=== PATIENT | male | born 1950 | race Caucasian/White ===

== ENCOUNTER 2024-05-16 06:12 | Day surgery (SDC) | payer MEDICARE, SELFPAY ==
[2024-05-16] VITALS (9 sets, daily range): BP systolic 105–122; BP diastolic 56–68; BMI 33.7
[2024-05-16] MEDS: CELEBREX 200 MG PO (06:42)
[2024-05-16] MEDS: TYLENOL 1000 MG PO (06:42)
[2024-05-16] MEDS: NORMOSOL-R/PLASMALYTE-A 1000 IV (06:43)
--- NOTE | 2024-05-16 08:25 | W.IMMPOSTOP ---
Addendum entered and electronically signed by Giancarlo Luu MD 05/16/24 08:47:
Updated daughter
Original Note:
Surgical Immed Post Op Note
-
Primary Surgeon: Giancarlo Luu MD
Assisting Surgeon: None
Pre-op Diagnosis: Recurrent atypical fissure
Post-op Diagnosis: Recurrent atypical fissure
Procedure Performed: Exam under anesthesia, biopsies of fissure, bilateral pudendal nerve block
Anesthesia Type: General With local
Specimen / Cultures: Fissure base, fissure margins
Estimated Blood Loss: 3 mL
Complications: None
Operative Findings: Per op note
--- NOTE | 2024-05-16 08:26 | OR.RPT ---
Operative Report
Operative Report
DATE OF OPERATION: 05/16/2024
SURGEON: Giancarlo Luu MD
PREOPERATIVE DIAGNOSIS: Recurrent atypical anal fissure
POSTOPERATIVE DIAGNOSIS: Recurrent atypical anal fissure
OPERATION: Exam under anesthesia, biopsies of anal fissure, bilateral pudendal nerve block
ASSISTANTS:
1. None
ANESTHESIA: General With local
ESTIMATED BLOOD LOSS: 3 mL
FINDINGS:
1. Right anterior anal fissure extending from the anal verge to the dentate line; evidence of healing with layer of epithelialization; internal sphincter muscle noted to the somewhat hypertonic
2. Biopsied base of fissure and margins of fissure
3. Incidental findings: Small mixed hemorrhoid in left lateral position associated with internal anal papilla; anal papilla noted in the posterior quadrant associated with small internal hemorrhoid; small internal hemorrhoid in the right posterior
position; small skin tag in the left lateral perianal skin
SPECIMENS:
1. Fissure base
2. Fissure margin
DRAINS: None
COMPLICATIONS: None
INDICATIONS: The patient is a 74-year-old male who initially presented with atypical anal fissure and underwent sphincterotomy. He had prolonged healing requiring treatments with silver nitrate but eventually completely healed and did well. He
presented once again with recurrent anal bleeding and was found to have a recurrent atypical anal fissure. Therefore, the patient was recommended to have surgery to obtain biopsies to rule out malignancy or other pathology. The operation was
discussed with the patient in detail, including the risks, benefits and alternatives. Risks described included, but not limited to bleeding, infection, urinary retention, damage to nearby structures such as the anal sphincter, fecal incontinence,
recurrence, inadequate biopsies and anesthetic risks. The patient understood and agreed to proceed. The consent was signed and placed in the chart.
PROCEDURE IN DETAIL: The patient was taken to the operating room. Sequential compression devices were placed bilaterally. Per anesthesia, the decision was made to intubate the patient for this surgery. On the stretcher, general anesthesia was
induced and the patient was intubated without complication. The patient was placed on the operating table in prone position. One seatbelt was secured around the upper back. The buttocks were taped apart. The perineum was shaved, prepped and
draped in the usual fashion. A time-out was performed verifying the correct patient, procedure, operative site, positioning, and special equipment.
Local anesthesia used was a mixture of 60 mL of 0.25% Marcaine and 0.6 mg of dexamethasone. 40 mL was injected perianally at the beginning of the case. The anorectal exam was performed assessing all four quadrants of the anal canal using
Hill-Mike retractors in progressively increasing size. The fissure that was previously noted was seen in the right anterior position extending from the anal verge to the dentate line. However, the fissure has started to heal and has a layer of
epithelialization over the wound bed. There were no obvious masses or ulcers seen associated with the fissure. The edges were mildly raised, but soft. The internal sphincter muscle was noted to be somewhat hypertonic, but did accommodate the medium
Hill-Mike without significant stretch. He also had small internal hemorrhoids in the right posterior and posterior positions associated with small anal papilla in the posterior quadrant. In the left lateral quadrant there was noted to be a
small mixed internal/external hemorrhoid. None of the hemorrhoids were irritated or bleeding and were therefore left alone. There was a small external skin tag in the left lateral perianal skin. On digital rectal exam, there were no masses. No
other concerning pathology within the anal canal. There was no proctitis.
The anal fissure was biopsied using DeBakey's and Metzenbaum scissors. The first biopsy was taken from the base of the fissure and the second biopsy was taken from each margin of the fissure. Hemostasis was controlled with electrocautery.
The remaining 20 mL of local were injected. 5 mL was injected bilaterally for a pudendal nerve block. 10 mL was injected around the surgical site and perianally. Hemostasis was reassessed once more using the small Hill-Mike and was confirmed.
Surgicel was placed in the operative site prophylactically.
At this point, the procedure was complete. All needle, sponge and instrument counts were correct. The patient tolerated the procedure well and was transferred to the recovery room in stable condition with gauze dressing in place secured with silk
tape.
DICTATED BY: Giancarlo Luu MD
== END 2024-05-16 10:40 | disposition home or self-care (01) ==
LOC: SDS 06:12
PROVIDERS: ATTENDING PHYSICIAN Surgery
DX: K60.2 Anal fissure, unspecified (principal); K64.8 Other hemorrhoids; K64.4 Residual hemorrhoidal skin tags; K62.89 Other specified diseases of anus and rectum
CPT/HCPCS: 46606; 88304

== ENCOUNTER → 2024-05-29 11:59 | Outpatient (REF) | payer MEDICARE, SELFPAY ==
[2024-05-29 16:53] LABS: HIV Combo Negative (Negative)
[2024-05-30 12:21] LABS: Syphilis/T. pallidum Ab Reflex Negative (Negative)
[2024-05-31 15:56] LABS: HSV 1 Subtype by PCR Not Detected; HSV 2 Subtype by PCR Not Detected; Herpes Simplex Source Plasma
== END ==
LOC: REG 11:59
PROVIDERS: ATTENDING PHYSICIAN Surgery
DX: K60.2 Anal fissure, unspecified (principal)
CPT/HCPCS: 36415; 86780; 87389; 87529

== ENCOUNTER 2024-06-06 14:03 | Day surgery (SDC) | payer MEDICARE, SELFPAY ==
[2024-06-06] VITALS (11 sets, daily range): BP systolic 105–124; BP diastolic 55–63
[2024-06-06 09:56] LABS: % Basophils 0.5 % (0-2); % Eosinophils 2.2 % (0-6); % Immature Granulocytes 0.4 % (0-0.5); % Lymphocytes 14.6 % (20.5-51.1); % Monocytes 9.3 % (1.7-9.3); Absolute Eosinophils 0.2 10^3/uL (0-0.7); Absolute Lymphocytes 1.1 10^3/uL (1.2-3.4); Absolute Monocytes 0.7 10^3/uL (0.1-0.6); Absolute Neutrophils 5.3 10^3/uL (1.4-6.5); Hematocrit 32.3 % (39.0-52.0); Hemoglobin 10.5 g/dL (13.0-18.0); Mean Corp Hgb Conc. 32.5 g/dL (33.0-37.0); Mean Corpuscular Hgb 30.4 pg (27.0-31.0); Mean Corpuscular Volume 93.6 fL (80.0-94.0); Nucleated Red Blood Cells % 0 % (-); Platelet Count 191 10^3/uL (130-400); Red Blood Cell Count 3.45 10^6/uL (4.70-6.10); Red Cell Dist. Width 13.7 % (11.5-14.5); White Blood Cell Count 7.3 10^3/uL (4.8-10.8)
[2024-06-06 10:11] LABS: ALT (SGPT) 16 U/L (0-50); AST (SGOT) 20 U/L (17-59); Albumin 3.6 g/dl (3.5-5.0); Alkaline Phosphatase 81 U/L (38-126); Blood Urea Nitrogen 18 mg/dl (9-20); Calcium 9.4 mg/dl (8.4-10.2); Carbon Dioxide 26 mmol/L (22-30); Chloride 108 mmol/L (98-107); Glucose 99 mg/dl (70-99); Potassium 4.7 mmol/L (3.5-5.1); Sodium 140 mmol/L (135-145); Total Bilirubin 0.4 mg/dl (0.2-1.3); eGFR 56.93
--- NOTE | 2024-06-06 10:34 | ED.GENMED ---
History of Present Illness
General
Chief Complaint: Rectal Bleeding
Source: patient
Exam Limitations: none
Time Seen by Provider: 06/06/24 10:33
Nursing documentation reviewed up to this point in time: agreed with
History of Present Illness
History of Present Illness:
74-year-old male with history of sleep apnea/CPAP, TAVR 2022, A-fib on Eliquis, HTN, HLD, anxiety/depression, daughter at bedside states 'Dr. Luu sent us in for a procedure.' Pt states he's had rectal bleeding since 05/16 when he had a biopsy.
He has held his Eliquis per Dr. Luu
Past History
Past History
ED Past Medical History: Arrthythmia (A-fib on Eliquis), HTN, Hypercholesterolemia and Psychiatric (Anxiety/depression, PTSD)
ED Past Surgical History: Cardiac (TAVR 01/2023), Orthopedic and Other (Fissurectomy with Botox 2020)
Social History
Tobacco: Non-smoker
Alcohol: None
Personal: Single
Living: alone
Employment: Retired
Review of Systems
Review of Systems
Allergies reviewed?: Yes
All Other Systems: ROS reviewed and negative except as documented in HPI and ROS
Constitutional: Denies fever or fatigue
Respiratory: Denies trouble breathing
Cardiac: Denies chest pain
ABD/GI: Reports other (bleeding rectal fissure); Denies abdominal pain
Musculoskeletal: Reports no symptoms
Skin: Reports no symptoms
Neurological: Reports no symptoms
Phy Exam
Physical Exam
Physical Exam:
GENERAL: No acute distress. A&Ox3.
CONSTITUTIONAL: Afebrile.
EYES: clear, conjunctivae normal
ENMT: moist mucus membranes
RESPIRATORY: Regular respirations, nonlabored, lungs clear.
CARDIOVASCULAR: Regular rate and rhythm, no murmurs, no rubs.
GI: Soft, nontender, normal BS
MUSCULOSKELETAL: Moves with ease. Well perfused.
SKIN: Warm, dry, pink
PSYCH: Normal mood and affect. Well kept, interactive and appropriate
NEUROLOGIC: Awake, alert and oriented. No focal neurological deficits
Course
Orders/Labs/Results
Orders:
Orders
06/06/24 09:37
CMP [Comprehensive Metabolic Panel] Urgent
Complete Blood Count/With Diff Urgent
06/06/24 11:31
Botulinum Toxin Type A [Botox] 100 units INJ OR ONE
06/06/24 11:42
Type+Screen Urgent
Protime/PTT Urgent
06/06/24 12:07
Triamcinolone Acetonide [Kenalog-10] 50 mg INTRALES NOW STA
06/06/24 12:34
Morphine Sulfate 4 mg IV NOW STA
06/06/24 12:49
Fentanyl Citrate/Pf [Sublimaze] 100 mcg .ROUTE .STK-MED ONE
Lidocaine HCl/Pf [Xylocaine-Mpf 1% Vial] 50 mg .ROUTE .STK-MED ONE
Propofol [Diprivan] 20 ml .ROUTE .STK-MED
06/06/24 12:51
Ondansetron Injectable [Zofran] 4 mg .ROUTE .STK-MED ONE
06/06/24 13:04
ABO2 Urgent
BBK Wristband Number:
Associate notified that ABO2 has been ordered: [id number]
Date: 06/06/24
Time: 12:04
Teacher Assistant ID: [id number]
06/06/24 13:17
Bupivacaine Mpf 0.25% [Sensorcaine-Mpf 0.25% Vial] 60 ml .ROUTE .STK-MED ONE
Dexamethasone Pf [Decadron] 10 mg .ROUTE .STK-MED ONE
06/06/24 13:23
Ketamine 5 ml .ROUTE .STK-MED
Midazolam HCl [Versed] 2 mg .ROUTE .STK-MED ONE
06/06/24 14:31
Dexamethasone Sod Phosphate [Decadron] 20 mg .ROUTE .STK-MED ONE
Famotidine [Pepcid] 20 mg .ROUTE .STK-MED ONE
Ondansetron Injectable [Zofran] 4 mg .ROUTE .STK-MED ONE
Sugammadex Sodium [Bridion] 200 mg .ROUTE .STK-MED ONE
06/06/24 14:34
Phenylephrine HCl/0.9% NaCl [Royal-Synephrine] 1,000 mcg .ROUTE .STK-MED ONE
ePHEDrine SULFATE [Emerphed] 50 mg .ROUTE .STK-MED ONE
06/06/24 14:42
HYDROmorphone [Dilaudid] 0.25 mg IV PACU-Q5MPRN PRN
Meperidine [Demerol] 12.5 mg IV PACU-Q5MPRN PRN
Morphine Sulfate 1 mg IV PACU-Q5MPRN PRN
Ondansetron Injectable [Zofran] 4 mg IV PACU-ONCEPRN PRN
Prochlorperazine [Compazine] 5 mg IV PACU-ONCEPRN PRN
Notify MD As Directed
Notify physician if: for SDS patients with known or suspected sleep obstructive sleep apnea, monitor in the
PACU.
Notify MD for any apneic/desaturation episodes
O2 Therapy [RESP] Urgent
Titrate/Wean O2 to maintain O2 sat greater than (%): 92
Special Instructions: -Provide supplemental oxygen to achieve O2 sat of 92% or greater.
-After 15 min, may wean O2 and discontinue if patient is able to maintain O2 sat of 92%
or greater during recovery period.
If patient is a discharge home, without oxygen therapy, notify anestheiologist if
unable to maintain O2 SAT of 92% or greater on room air for MD clearance.
06/06/24 14:45
Acetaminophen 1000MG/100Ml [Ofirmev] 1,000 mg in 100 ml .ROUTE .STK-MED
Normosol (Mult Electrolytes) [Normosol-R/Plasmalyte-A] 1,000 ml IV PER PROTOCOL
06/06/24 16:00
Acetaminophen [Tylenol] 650 mg PO SDS-Q4HPRN PRN
Ibuprofen [Motrin] 600 mg PO SDS-Q6HPRN PRN
Ondansetron Injectable [Zofran] 4 mg IV SDS-ONCEPRN PRN
Oxycodone [Roxicodone] 5 mg PO SDS-Q4HPRN PRN
Abnormal Lab Results
06/06/24
09:37
RBC 3.45 L 10^6/uL
(4.70-6.10)
Hgb 10.5 L g/dL
(13.0-18.0)
Hct 32.3 L %
(39.0-52.0)
MCHC 32.5 L g/dL
(33.0-37.0)
Absolute Lymphs (auto) 1.1 L 10^3/uL
(1.2-3.4)
Absolute Monos (auto) 0.7 H 10^3/uL
(0.1-0.6)
Lymphocytes % 14.6 L %
(20.5-51.1)
Chloride 108 H mmol/L
(98-107)
Total Protein 6.0 L g/dl
(6.3-8.2)
06/06/24 09:37
06/06/24 09:37
Vital Signs
Initial and Last Documented VS:
Initial Vital Signs
Pulse Resp BP Pulse Ox
54 18 112/63 99
06/06/24 11:01 06/06/24 11:01 06/06/24 11:01 06/06/24 11:01
Last Documented Vital Signs
Temp Pulse Resp BP Pulse Ox
97 F 69 20 122/59 96
06/06/24 15:47 06/06/24 16:05 06/06/24 16:05 06/06/24 16:05 06/06/24 16:05
MDM/Problems Addressed
MDM/Problems Addressed:
74-year-old male with history of sleep apnea/CPAP, TAVR 2022, A-fib on Eliquis, HTN, HLD, anxiety/depression, daughter at bedside states 'Dr. Luu sent us in for a procedure.' Pt states he's had rectal bleeding since 05/16 when he had a biopsy.
Afebrile, NAD
CBC: Hemoglobin 10.5
11:00 AM:
Dr. Luu notified patient is here, he states
12:30 PM: Patient is awaiting for O.R. Requesting pain medication for his chronic back pain and more recent rectal pain
*Critical Care Note
Total Time (30-74mins, 75-104mins- exclusive of procedures): Not Applicable
ED Attending Note
-
Portions of this chart may have been created with voice recognition software.� Occasional wrong word or��sound alike� substitutions may have occurred due to the inherent limitations of voice recognition software.
Discharge Plan
Departure
Patient Disposition: OR
Date of Disposition: 06/06/24
Time of Disposition: 13:04
Presentation/result/management discussed w/ accepting /: Jus
Condition: Fair
Discharge Problem:
Chronic rectal fissure, Bleeding per rectum
Interventions
Interventions:
*Risk Screen - Suicide Last Done: 06/06/24 09:01
*General Assessment Last Done: 06/06/24 09:01
*ED COVID-19 Vaccine History Last Done: 06/06/24 09:01
*Nursing Disposition Last Done: 06/06/24 13:37
ZG-Abciyt-Zkmnxlbiin Assessment Last Done: 06/06/24 11:00
ED- Cardiac Assessment Last Done: 06/06/24 11:00
ED- Pulmonary Assessment Last Done: 06/06/24 11:00
Discharge Date and Time
Discharge Date/Time: 06/06/24 13:38
--- NOTE | 2024-06-06 11:29 | CON.CRS ---
Consultation
-
Reason for Consultation: rectal bleeding
Medical History
-
History of Present Illness:
74-year-old male with PMH of HTN, HLD, anxiety/depression, CARLOS, A-fib (on Eliquis, last dose yesterday morning), who presents for anal bleeding since EUA with biopsies on 05/16. He has a history of recurrent anal fissure initially underwent Botox
injection in 2020, underwent right lateral internal sphincterotomy with his excision of anal papilla in 02/2023, he was seen by myself in 03/2024 for recurrent onset of spotting of blood, found to have a right anterior anal fissure. Due to the
atypical nature, he underwent EUA with biopsies on 05/16, that came back negative for malignancy. STI workup was also negative. Since the EUA with biopsies, he has had daily spotting of blood with BMs. He was managed as an outpatient for the last 2
weeks with holding his Eliquis for periods of time and adjusting his topical cream. However, despite these measures, he is continue to have daily spotting of blood. He does have discomfort with BMs, but the pain is not as bad as before. He denies
any chest pain, SOB, lightheadedness or dizziness.
Past Medical History
Past Medical History: Other (As above)
Past Surgical History: Other (Botox injection 2020, sphincterotomy 02/2023, anal biopsies 05/16/2024, open heart surgery 01/2023, back surgery, right TKR)
Social History
Tobacco: Non-Smoker
Alcohol: None
Drug: None
Employment: Retired
Family History
Family History: Other (Denies CRC)
Allergies / Home Medications
Allergy/AdvReac Type Severity Reaction Status Date / Time
diltiazem Allergy Unknown Verified 06/06/24 09:03
lisinopril Allergy cough Verified 06/06/24 09:03
�Medication �Instructions �Recorded �Confirmed �Type
amlodipine 5 mg tablet 5 mg PO BID 11/26/20 05/16/24 History
apixaban 5 mg tablet (Eliquis) 5 mg PO BID 11/26/20 05/16/24 History
clonazepam 0.5 mg tablet 0.5 mg PO PRN PRN anxiety 11/26/20 05/16/24 History
dronedarone 400 mg tablet (Multaq) 400 mg PO BID 11/26/20 05/16/24 History
fluoxetine 20 mg capsule 40 mg PO DAILY 11/26/20 05/16/24 History
hydroxyzine HCl 25 mg tablet 25 mg PO PRN PRN anxiety 11/26/20 05/16/24 History
metoprolol tartrate 50 mg tablet 50 mg PO QPM 11/26/20 05/16/24 History
mirtazapine 30 mg tablet 15 mg PO HS 11/26/20 05/16/24 History
risperidone 1 mg tablet (Risperdal) 2 mg PO HS 11/26/20 05/16/24 History
tamsulosin 0.4 mg capsule 0.4 mg PO HS 11/26/20 05/16/24 History
valsartan 160 mg tablet (Diovan) 160 mg PO BID 11/26/20 05/16/24 History
acetaminophen 325 mg tablet 650 mg PO Q4H PRN pain 02/24/23 05/16/24 History
(Tylenol)
docusate sodium 100 mg capsule 200 mg PO BID 02/24/23 05/16/24 History
(Stool Softener)
metoprolol tartrate 100 mg tablet 100 mg PO DAILY 02/24/23 05/16/24 History
oxycodone 5 mg capsule 5 mg PO Q4H PRN pain 02/24/23 05/16/24 History
atorvastatin 40 mg tablet 40 mg PO HS 05/15/24 05/16/24 History
cholecalciferol (vitamin D3) 25 25 mcg PO DAILY 05/15/24 05/16/24 History
mcg (1,000 unit) tablet (Vitamin
D3)
hydrochlorothiazide 25 mg tablet 25 mg PO Q48H 05/15/24 05/16/24 History
mecobalamin (vitamin B12) 1,000 1,000 mcg PO DAILY 05/15/24 05/16/24 History
mcg chewable tablet
multivitamin 1 tab PO DAILY 05/15/24 05/16/24 History
polyethylene glycol 3350 17 gram 17 g PO DAILY 05/15/24 05/16/24 History
oral powder packet (Miralax)
psyllium 2 tbsp PO DAILY 05/15/24 05/16/24 History
naproxen 500 mg tablet (Naprosyn) 500 mg PO BID #14 tabs 05/16/24 Rx
Review of Systems
-
A 10 point review of systems was completed, and was negative except as per HPI.
Physical Exam
Vital Signs
Pulse 54 06/06/24 11:01
Resp Rate 18 06/06/24 11:01
Blood pressure 112/63 06/06/24 11:01
SaO2 99 06/06/24 11:01
06/05/24 06/06/24 06/07/24
06:59 06:59 06:59
Actual Weight 95.7 kg
Lab Results / Allergies
06/06/24 09:37
06/06/24 09:37
WBC 7.3 10^3/uL (4.8-10.8) 06/06/24 09:37
Hgb 10.5 g/dL (13.0-18.0) L 06/06/24 09:37
Hct 32.3 % (39.0-52.0) L 06/06/24 09:37
Plt Count 191 10^3/uL (130-400) 06/06/24 09:37
Abs Immat Gran (auto) 0.0 10^3/uL (0-0.05) 06/06/24 09:37
Neutrophils % 73.0 % (42.2-75.2) 06/06/24 09:37
Allergy/AdvReac Type Severity Reaction Status Date / Time
diltiazem Allergy Unknown Verified 06/06/24 09:03
lisinopril Allergy cough Verified 06/06/24 09:03
Physical Exam
General: Well Developed, Well Nourished and No Apparent Distress
HEENT: Normocephalic and Atraumatic
Respiratory: Non Labored Respirations
GI: Soft, Non Tender and Non Distended
Rectal: Other (Deferred due to EUA today)
Skin: Warm and Dry
Neuro: AO x 3
Data Reviewed
-
Labs: Labs Reviewed by me, Discussed with Patient and Discussed with Family
Assessment / Plan
-
74-year-old male with PMH of HTN, HLD, anxiety/depression, CARLOS, A-fib (on Eliquis, last dose yesterday morning), who presents for anal bleeding since EUA with biopsies on 05/16. He has a history of recurrent anal fissure initially underwent Botox
injection in 2020, underwent right lateral internal sphincterotomy with his excision of anal papilla in 02/2023, he was seen by myself in 03/2024 for recurrent onset of spotting of blood, found to have a right anterior anal fissure. Due to the
atypical nature, he underwent EUA with biopsies on 05/16, that came back negative for malignancy. STI workup was also negative. Since the EUA with biopsies, he has had daily spotting of blood with BMs. He was managed as an outpatient for the last 2
weeks with holding his Eliquis for periods of time and adjusting his topical cream. However, despite these measures, he is continue to have daily spotting of blood. In the ED, AFVSS, Hb 10.5 (no prior CBC in [facility]).
�Will take patient for EUA to evaluate for the bleeding source, which seems most likely to be his known fissure; explained with patient that if his fissure is still causing the symptoms, I would move forward with Botox injection if there is
hypertonicity noted in the internal sphincter; I reviewed the risks benefits and alternatives, including but not limited to, risks of infection, continued bleeding, recurrence, urinary retention, damage to the sphincter/fecal incontinence, anal
stenosis
�Keep n.p.o.
� Hold Eliquis; will send coags and type and screen
Dispo�likely will send home tonight if surgery goes as planned, but will determine postoperatively
[2024-06-06 12:08] LABS: APTT 27.3 Sec (23.4-35.0); INR 1.05
[2024-06-06] MEDS: MORPHINE SULFATE 4 MG IV (12:52)
--- NOTE | 2024-06-06 14:52 | W.IMMPOSTOP ---
Surgical Immed Post Op Note
-
Primary Surgeon: Giancarlo Luu MD
Assisting Surgeon: None
Pre-op Diagnosis: Anal bleeding
Post-op Diagnosis: Bleeding anal fissure
Procedure Performed: Exam under anesthesia, control of bleeding, Botox injection of internal anal fissure, fissurectomy, bilateral pudendal nerve block
Anesthesia Type: Sedation with local
Specimen / Cultures: None
Estimated Blood Loss: 5 mL
Complications: None
Operative Findings: Known right anterior fissure extending from the anal verge to the dentate line with scattered sites of brisk oozing; base of fissure associated with some granulation tissue and one site of oozing along the fissure margin; the
base of the fissure was cauterized and 2 [id number] stitches of 2-0 Vicryl were placed to control the oozing from the fissure margin; incidental findings include 2 small anal skin tags in the left anterior and anterior position associated with
small external hemorrhoids; small internal hemorrhoids without irritation or bleeding; no masses, no proctitis
--- NOTE | 2024-06-06 15:01 | OR.RPT ---
Operative Report
Operative Report
DATE OF OPERATION: 06/06/2024
SURGEON: Giancarlo Luu MD
PREOPERATIVE DIAGNOSIS: Anal bleeding
POSTOPERATIVE DIAGNOSIS: Bleeding anal fissure
OPERATION: Exam under anesthesia, control of anal bleeding, injection of botox into internal anal sphincter, fissurectomy, bilateral pudendal nerve block
ASSISTANTS:
1. None
ANESTHESIA: General With local
ESTIMATED BLOOD LOSS: 5 mL
FINDINGS:
1. Few scattered areas of brisk oozing from the anal fissure associated with granulation tissue, controlled with electrocautery
2. One area of brisk oozing from the fissure margin, controlled with 2 [id number] stitches
3. Botox injection of 25 units in 4 quadrants
SPECIMENS:
1. None
DRAINS: N/A
COMPLICATIONS: None
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 He is on Eliquis for A-fib and has had anal bleeding since the procedure. We tried nonoperative measures and holding his
Eliquis, but the bleeding persisted. Therefore, the patient was recommended to have surgery, both to identify the source of bleeding and control it. The operation was discussed with the patient in detail, including the risks, benefits and
alternatives. Risks described included, but not limited to bleeding, infection, urinary retention, damage to nearby structures such as the anal sphincter, fecal incontinence, recurrence, and anesthetic risks. I explained that if the bleeding is
related to the sphincter, I would assess whether he has a hypertonic sphincter. I would be prepared for a Botox injection if so. If it is normal tone, I would consider Kenalog injection. If there is another source of bleeding, such as a
hemorrhoid, I would attempt to control this with suture ligation. The patient understood and agreed to proceed. The consent was signed and placed in the chart.
PROCEDURE IN DETAIL: The patient was taken to the operating room. Per anesthesia, the decision was made to intubate the patient for this surgery. On the stretcher, general anesthesia was induced and the patient was intubated without complication.
The patient was placed on the operating table in prone position. Sequential compression devices were placed bilaterally. Two seat belts were secured around the legs and upper back. The buttocks were taped apart. The perineum was shaved, prepped
and draped in the usual fashion. A time-out was performed verifying the correct patient, procedure, operative site, positioning, and special equipment.
Local anesthesia used was a mixture of 60 mL of 0.25% Marcaine with epinephrine and 0.6 mg of dexamethasone. 40 mL was injected perianally at the beginning of the case. The anorectal exam was performed assessing all four quadrants of the anal canal
using Hill-Mike retractors in progressively increasing size. There were 2 skin tags, moderate in size, in the left anterior and anterior quadrants along the anal verge. These were associated with small external hemorrhoids. There was the
known right anterior anal fissure, similar in appearance to 3 weeks ago. This extended from the anal verge to the dentate line and was about 1 cm wide. There was active brisk oozing from a few scattered spots at the fissure base and at the
anterior fissure margin. The fissure base had some granulation tissue, no fistulas or masses appreciated. The internal sphincter was hypertonic. There was no proctitis and no masses in the remainder of the anal canal. There were small internal
hemorrhoids that were not irritated or bleeding.
For hemostasis, the base of the fissure was fulgurated and the oozing was controlled. Nearly the entire base of the fissure was fulgurated. I attempted to control the oozing from the anterior fissure margin, but electrocautery was not sufficient.
Therefore, I placed 2 [id number] stitches of 2-0 Vicryl, which controlled the bleeding. 100 units of Botox was drawn up with 2 mL of sterile saline. Using a 27-gauge needle, the Botox was injected in 4 quadrants in equal portions,
specifically 25 units in the anterior midline, right lateral quadrant, posterior midline and left lateral quadrant. Care was taken to avoid incidental injection into the external sphincter.
The remaining 20 mL of local were injected. 5 mL was injected bilaterally for a pudendal nerve block. 10 mL was injected around the surgical site and perianally. Hemostasis was reassessed once more using the small Hill-Mike and was confirmed.
Surgicel was placed in the operative site prophylactically.
At this point, the procedure was complete. All needle, sponge and instrument counts were correct. The patient tolerated the procedure well and was transferred to the recovery room in stable condition with gauze dressing in place secured with silk
tape.
DICTATED BY: Giancarlo Luu MD
== END 2024-06-06 16:50 | disposition home or self-care (01) ==
LOC: PACU 14:03
PROVIDERS: Student in an Organized Health Care Education/Training Program; ATTENDING PHYSICIAN Surgery; EMERGENCY PHYSICIAN Student in an Organized Health Care Education/Training Program
DX: K60.2 Anal fissure, unspecified (principal); K62.5 Hemorrhage of anus and rectum
CPT/HCPCS: 46200; 46505; 80053; 85025; 85610; 85730; 86850; 86900; 86901; 96374; 99285; J0585

== ENCOUNTER 2024-12-27 06:31 | Day surgery (SDC) | payer MEDICARE, SELFPAY ==
[2024-12-27] VITALS (7 sets, daily range): BP systolic 114–152; BP diastolic 59–75; BMI 33.0
[2024-12-27] MEDS: TYLENOL 1000 MG PO (09:54)
[2024-12-27] MEDS: NORMOSOL-R/PLASMALYTE-A 1000 IV (10:01)
--- NOTE | 2024-12-27 13:14 | W.IMMPOSTOP ---
Surgical Immed Post Op Note
-
Primary Surgeon: Giancarlo Luu MD
Assisting Surgeon: Montez Carty MD
Pre-op Diagnosis: Anal fissure
Post-op Diagnosis: Nonhealing anal wound
Procedure Performed: Exam under anesthesia, anal biopsies, fulguration of anal wound, bilateral pudendal nerve block
Anesthesia Type: Sedation with local
Specimen / Cultures: Anal wound distal margin, anal wound left margin
Estimated Blood Loss: 10 mL
Complications: None
Operative Findings: Persistent anal wound in the right anterior position extending from the distal rectum to the anal verge, encompassing 30% of the circumference of the anal canal; there is superficial epithelialization, but easy friability and
oozing of blood with palpation; no other concerning anorectal findings; sphincter tone was not obviously increased; small internal hemorrhoids in the left lateral and right posterior positions without irritation or bleeding; there were no masses or
proctitis; performed biopsies and fulgurated the entire base of the wound; left Gelfoam in the anal canal
--- NOTE | 2024-12-27 13:20 | OR.RPT ---
Operative Report
Operative Report
DATE OF OPERATION: 12/27/2024
SURGEON: Giancarlo Luu MD
PREOPERATIVE DIAGNOSIS: Anal fissure
POSTOPERATIVE DIAGNOSIS: Nonhealing chronic anal wound
OPERATION: Exam under anesthesia, anal biopsy, fulguration of anal wound, bilateral pudendal nerve block
ASSISTANTS:
1. Montez Carty MD
ANESTHESIA: Sedation with local
ESTIMATED BLOOD LOSS: 10 mL
FINDINGS:
1. Large epithelialized wound in the right anterior position in the location of his prior fissure; evidence of epithelialization, but easily friable and oozing blood
2. Incidental findings: no significantly increased sphincter tone, small internal hemorrhoids in the left lateral and right posterior position; no proctitis
SPECIMENS:
1. Anal wound distal margin
2. Anal wound left margin
DRAINS: N/A
COMPLICATIONS: None
INDICATIONS: The patient is a 74-year-old male who has had a long history of recurrent anal fissure. He first underwent Botox injection back in [address] Carty. He had recurrence and I performed right lateral internal sphincterotomy in
February 2023. This was complicated by a chronic wound at the incision, which required application of silver nitrate. Eventually, this resolved. He again developed recurrence at the end of 2023. A trial of non-operative measures was recommended,
but without completely resolution of his symptoms. I performed an exam under anesthesia on 05/16/2024, which showed the anal fissure in the right anterior position, but with evidence of wound healing. I performed biopsies, which were negative. Due
to persistent bleeding, I returned to the OR on 06/06/2024 and identified brisk bleeding from the anal fissure margin, controlled with suture ligation. He improved, but never completely resolved. He continued having waxing and waning spotting of
blood. He would have to hold the Eliquis for a period. After restarting it, he would have persistent spotting of blood. I recommended returning to the operating room, but the patient opted to continue nonoperative measures. After these measures
did not improve his symptoms, the patient agreed to surgery. After reviewing options between Botox injection, Kenalog injection, sphincterotomy, the patient elected to proceed with Kenalog injection. Due to his fear of incontinence, he did not
want a redo sphincterotomy. The operation was discussed with the patient in detail, including the risks, benefits and alternatives. Risks described included, but not limited to, bleeding, infection, urinary retention, damage to nearby structures
such as the anal sphincter, fecal incontinence, recurrence, and anesthetic risk. The patient understood and agreed to proceed. The consent was signed and placed in the chart.
PROCEDURE IN DETAIL: The patient was taken to the operating room. Sequential compression devices were placed bilaterally. The patient was placed on the operating table in prone position. Sedation was commenced without complication. Two seat belts
were secured around the legs and upper back. The buttocks were taped apart. The perineum was shaved, prepped and draped in the usual fashion. A time-out was performed verifying the correct patient, procedure, operative site, positioning, and
special equipment.
Local anesthesia used was a mixture of 30 mL of 0.25% Marcaine with epinephrine, 30mL of 1% lidocaine plain and 0.6 mg of dexamethasone. 40 mL was injected perianally at the beginning of the case. The anorectal exam was performed assessing all four
quadrants of the anal canal using Hill-Mike retractors in progressively increasing size. There were small internal hemorrhoids in the left lateral and right posterior position without irritation or bleeding. In the area of his previous
fissure, there was a large wound with evidence of epithelialization. The wound was friable and oozed blood with palpation. The wound extended from the anal verge to the anorectal ring and encompassed about 30% of the circumference of the anal
canal. My partner, Dr. Carty, assisted me and agreed that this looked like a chronic wound. He did not feel that this appeared to be a true ulcer or fissure. I agreed. To rule out any concerning pathology, I took biopsies from the distal margin
where there was some granulation tissue, as well as the left lateral margin which was slightly raised and whitish in color. I used DeBakey forceps and Metzenbaum scissors to obtain the biopsies. Hemostasis was achieved with electrocautery. I felt
that injecting the Kenalog would not help as this did not appear to be a chronic fissure anymore. If our suspicion is correct, injecting a steroid and a chronic wound may inhibit wound healing even further. To try to bolster wound healing, I
fulgurated the the wound with electrocautery and ensured hemostasis. I irrigated the anal canal and hemostasis was confirmed.
The remaining 20 mL of local were injected. 5 mL was injected bilaterally for a pudendal nerve block. 10 mL was injected around the surgical site and perianally. Hemostasis was reassessed once more using the small Hill-Mike and was confirmed.
A Gelfoam tampon was placed in the anal canal prophylactically.
At this point, the procedure was complete. All needle, sponge and instrument counts were correct. The patient tolerated the procedure well and was transferred to the recovery room in stable condition with gauze dressing in place secured with silk
tape.
Of note, Montez Carty MD, clinical assistant professor, was necessary during this procedure for traction, countertraction, and exploratory purposes. I was present for the entire duration of the case.
DICTATED BY: Giancarlo Luu MD
== END 2024-12-27 14:32 | disposition home or self-care (01) ==
LOC: SDS 06:31
PROVIDERS: ATTENDING PHYSICIAN Surgery
DX: K60.2 Anal fissure, unspecified (principal)
CPT/HCPCS: 46505; 88305